=== PATIENT | male | born 1945 | race Caucasian/White ===

== ENCOUNTER 2019-03-03 13:06 | Emergency (ER) | payer OTHER ==
[~2019-03-03] VITALS: Wt 95.1 kg
[2019-03-03 13:11] VITALS: RESP 18
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
[2019-03-03] MEDS ORDERED: ACETAMINOPHEN 325 MG TAB PO ONE (14:00)
[2019-03-03] MEDS ORDERED: IBUPROFEN 200 MG TAB PO ONE (14:00)
[2019-03-03] MEDS ORDERED: IBUP-1561 PO (15:09)
[2019-03-03] MEDS ORDERED: ACET325T33 PO (15:09)
[2019-03-03 15:33] VITALS: BP 132/88; PULSE 83
== END 2019-03-03 15:34 | disposition home or self-care (01) ==
LOC: FTE 13:06
DX: S40.012A Contusion of left shoulder, initial encounter (principal); I10 Essential (primary) hypertension; V09.29XA Pedestrian injured in traffic accident involving other motor vehicles, initial encounter
CPT/HCPCS: 73030; 73510